=== PATIENT | female | born 1975 | race American Indian/Alaskan Native ===

== ENCOUNTER 2017-09-24 11:00 | Outpatient (CLI) | payer MEDICAID | END 2017-09-24 11:01 | disposition home or self-care (01) | LOC: SLR 11:00 | PROVIDERS: ATTEND Specialist | DX: G47.30 Sleep apnea, unspecified (principal); R40.0 Somnolence; E66.9 Obesity, unspecified; I10 Essential (primary) hypertension | CPT/HCPCS: 95810 ==

== ENCOUNTER → 2017-10-20 | Outpatient (CLI) | payer MEDICAID | LOC: SLR 11:00 | PROVIDERS: ATTEND Specialist | DX: G47.33 Obstructive sleep apnea (adult) (pediatric) (principal); E66.9 Obesity, unspecified; R40.0 Somnolence | CPT/HCPCS: 95811 ==

== ENCOUNTER → 2017-12-08 | Outpatient (CLI) | payer MEDICAID | LOC: SLR 11:00 | PROVIDERS: ATTEND Otolaryngology | DX: G47.33 Obstructive sleep apnea (adult) (pediatric) (principal) | CPT/HCPCS: 95811 ==

== ENCOUNTER 2018-03-02 06:54 | Day surgery (SDC) | payer MEDICAID ==
[2018-03-02] MEDS ORDERED: NACL 0.9% 1000 ML 1,000 ML ONE (12:23)
[2018-03-02] MEDS ORDERED: APRESOLINE ONE (12:39)
[2018-03-02] MEDS ORDERED: DIPRIVAN 10 MG/ML IV ONE (12:40)
[2018-03-02] MEDS ORDERED: HURRICAINE ONE 20% TOPICAL SPRAY MM ×2 (12:43→12:47)
[2018-03-02] MEDS ORDERED: WATER FOR IRRIG STERILE IR ONE (12:47)
--- NOTE | 2018-03-02 12:49 | Anesthesia Consultation ---
Anesthesia Consult and Med Hx Date of service: 03/02/18 - Airway Anesthetic Teeth Evaluation: Good ROM Head & Neck: Adequate Mental/Hyoid Distance: Adequate Mallampati Class: Class III Intubation Access Assessment: Possibly Difficult - Pre-Operative Health Status ASA Pre-Surgery Classification: ASA3 Proposed Anesthetic Plan: MAC - Pulmonary Hx Sleep Apnea: Yes - Cardiovascular System Hx Hypertension: Yes - Endocrine Hx Non-Insulin Dependent Diabetes: Yes - Other Systems Hx Obesity: Yes (BMI 52.9)
--- NOTE | 2018-03-02 12:49 | Anesthesia Day of Surgery ---
Anesthesia Day of Surgery - Day of Surgery Patient Examined: Yes Patient H&P Reviewed: Yes Patient is NPO: Yes
[2018-03-02] MEDS ORDERED: NACL 0.9% 1000 ML 1,000 ML IV SCH (13:00)
[2018-03-02] MEDS ORDERED: NEO SYNEPHRINE/NS Syringe(OR USE) IV ONE (13:00)
[2018-03-02] MEDS ORDERED: XYLOCAINE MPF 2% ONE (13:00)
[2018-03-02 13:34] VITALS: BP 155/90
[2018-03-02] MEDS ORDERED: HURRICAINE ONE 20% TOPICAL SPRAY MM NR (19:00)
== END 2018-03-02 06:55 | disposition home or self-care (01) ==
LOC: GIO 06:54
PROVIDERS: ATTEND Specialist
DX: K20.9 Esophagitis, unspecified (principal); K44.9 Diaphragmatic hernia without obstruction or gangrene; E66.01 Morbid (severe) obesity due to excess calories; E11.9 Type 2 diabetes mellitus without complications; I10 Essential (primary) hypertension; G47.30 Sleep apnea, unspecified; F32.9 Major depressive disorder, single episode, unspecified; Z68.43 Body mass index [BMI] 50.0-59.9, adult; Z90.710 Acquired absence of both cervix and uterus; Z98.890 Other specified postprocedural states
CPT/HCPCS: 43235; 82962; 88305; J0360; J2370; J2704; J7030

== ENCOUNTER 2018-06-23 20:23 | Emergency (ER) | payer MEDICAID ==
[2018-06-23 21:03] VITALS: BP 152/79
[2018-06-23 22:37] LABS: Bacteria,Urine 1+ /HPF (Negative); Bilirubin,Urine NEG (Negative); Blood,Urine NEG (Negative); Color,Urine Yellow (Yellow); Mucus,Urine 1+ /HPF
[2018-06-24] MEDS ORDERED: MOTRIN PO ONE (00:10)
--- NOTE | 2018-06-24 00:14 | Emergency Department Report ---
ED Headache HPI - General Chief Complaint: Headache Stated Complaint: HEADACHE/BACKPAIN Time Seen by Provider: 06/24/18 00:07 - History of Present Illness Initial Comments: Patient is a 42-year-old female who presents for headache for 2 days is 3/10 left temporal exacerbated by movement patient has not attempted over-the- counter pain medication is no dizziness or lightheadedness no nausea no vomiting secondary complaint dysuria frequency urgency no hematuria back pain patient states my concern for STI there is no vaginal discharge no vaginal bleeding last menstrual period 2 years ago Timing/Duration: other (2) Quality: moderate Head Injury Location: temporal Recent Head Trauma: occasional headaches Modifying Factors: improves with: rest Associated Symptoms: denies: confusion, fatigue, facial pain, fever/chills, flushing, loss of consciousness, nausea/vomiting, nasal congestion, nasal drainage, numbness in legs/feet, rash, seizures, sinus infection, stiff neck, vision changes, weakness Allergies/Adverse Reactions: Allergies clindamycin Allergy (Intermediate, Verified 03/04/18 15:18) Rash ITCHING latex Allergy (Intermediate, Verified 03/04/18 15:18) Unknown olmesartan [From Benicar] Allergy (Intermediate, Verified 03/04/18 15:18) Swelling lisinopril Allergy (Mild, Verified 03/04/18 15:18) Unknown COUGHING Penicillins Adverse Reaction (Verified 03/04/18 15:18) Rash ITCHING Home Medications: Ambulatory Orders Gabapentin 300 mg PO DAILY 03/01/18 Hydrochlorothiazide 25 mg PO DAILY 03/01/18 Losartan 10 mg PO DAILY 03/01/18 Zoloft 50 mg PO DAILY 03/01/18 amLODIPine 10 mg PO DAILY 03/01/18 metFORMIN 1,000 mg PO BID 03/01/18 Insulin Detemir [Levemir Flextouch] 50 units SQ QDAY 03/09/18 Insulin Lispro [Humalog 100 UNITS/ML Kwikpen] 15 units SQ BID 03/09/18 Insulin Lispro [Humalog 100 UNITS/ML Kwikpen] 20 units SQ QDAY 03/09/18 Ibuprofen 800 mg PO TID PRN #30 tablet 06/24/18 Nitrofurantoin Petroleum/M-Cryst [Macrobid CAP] 100 mg PO BID #14 capsule 06/24/18 ED Review of Systems ROS: Stated complaint: HEADACHE/BACKPAIN Other details as noted in HPI Constitutional: denies: chills, fever Eyes: denies: eye pain, eye discharge, vision change ENT: denies: ear pain, throat pain Respiratory: denies: cough, shortness of breath, wheezing Cardiovascular: denies: chest pain, palpitations Endocrine: no symptoms reported Gastrointestinal: as per HPI Genitourinary: urgency, dysuria, frequency. denies: hematuria, discharge, abnormal menses, dyspareunia Musculoskeletal: denies: back pain, joint swelling, arthralgia Skin: denies: rash, lesions Neurological: denies: headache, weakness, paresthesias Psychiatric: denies: anxiety, depression Hematological/Lymphatic: denies: easy bleeding, easy bruising ED Past Medical Hx - Past Medical History Previous Medical History?: Yes Hx Hypertension: Yes (10 years ago) Hx Diabetes: Yes (OVER 10 YEARS) Hx Arthritis: Yes Hx HIV: No - Surgical History Past Surgical History?: Yes Additional Surgical History: c sec X3 hernia repair, gastric bypass, hysterectomy - Social History Smoking Status: Never Smoker Substance Use Type: None, Alcohol - Medications Home Medications: Home Medications Medication Instructions Recorded Confirmed Last Taken Type Gabapentin 300 mg PO DAILY 03/01/18 03/09/18 02/19/18 History Hydrochlorothiazide 25 mg PO DAILY 03/01/18 03/04/18 03/08/18 08:00 History Losartan 10 mg PO DAILY 03/01/18 03/04/18 Unknown History Zoloft 50 mg PO DAILY 03/01/18 03/04/18 03/08/18 08:00 History amLODIPine 10 mg PO DAILY 03/01/18 03/04/18 03/09/18 03:45 History metFORMIN 1,000 mg PO BID 03/01/18 03/04/18 03/08/18 08:00 History Insulin Detemir [Levemir Flextouch] 50 units SQ QDAY 03/09/18 03/09/18 03/08/18 08:00 History 50 UNITS Insulin Lispro [Humalog 100 15 units SQ BID 03/09/18 03/09/18 03/08/18 08:00 History UNITS/ML Kwikpen] Insulin Lispro [Humalog 100 20 units SQ QDAY 03/09/18 03/09/18 03/07/18 History UNITS/ML Kwikpen] Ibuprofen 800 mg PO TID PRN #30 tablet 06/24/18 Unknown Rx Nitrofurantoin Petroleum/M-Cryst 100 mg PO BID #14 capsule 06/24/18 Unknown Rx [Macrobid CAP] ED Physical Exam - General Limitations: No Limitations General appearance: alert, in no apparent distress - Head Head exam: Present: atraumatic, normocephalic - Eye Eye exam: Present: normal appearance - ENT ENT exam: Present: normal exam - Neck Neck exam: Present: normal inspection - Respiratory Respiratory exam: Present: normal lung sounds bilaterally. Absent: respiratory distress - Cardiovascular Cardiovascular Exam: Present: regular rate, normal rhythm. Absent: systolic murmur, diastolic murmur, rubs, gallop - GI/Abdominal GI/Abdominal exam: Present: soft, normal bowel sounds. Absent: distended, rebound, bruit, hernia - Rectal Rectal exam: Present: deferred - Extremities Exam Extremities exam: Present: normal inspection - Back Exam Back exam: Present: normal inspection, full ROM. Absent: tenderness, CVA tenderness (R), CVA tenderness (L), muscle spasm, paraspinal tenderness, vertebral tenderness, rash noted - Neurological Exam Neurological exam: Present: alert, oriented X3, CN II-XII intact, normal gait, reflexes normal. Absent: motor sensory deficit - Psychiatric Psychiatric exam: Present: normal affect, normal mood - Skin Skin exam: Present: warm, dry, intact, normal color. Absent: rash ED Course Vital Signs 06/23/18 20:57 Temperature 98.6 F Pulse Rate 64 Respiratory 20 Rate Blood Pressure 152/79 O2 Sat by Pulse 100 Oximetry ED Medical Decision Making - Lab Data Laboratory Tests 06/23/18 22:18 Urine Color Yellow Urine Turbidity Slightly-cloudy Urine pH 5.0 Ur Specific Golden 1.031 H Urine Protein 100 mg/dl Urine Glucose (UA) Neg Urine Ketones Neg Urine Blood Neg Urine Nitrite Neg Urine Bilirubin Neg Urine Urobilinogen 2.0 Ur Leukocyte Esterase Tr Urine WBC (Auto) 11.0 H Urine RBC (Auto) 3.0 U Epithel Cells (Auto) 9.0 Urine Bacteria (Auto) 1+ Urine Mucus 1+ - Medical Decision Making this is a uti with secondary headache, uA: wbc, luek, plan to Macrobid by mouth twice a day ibuprofen when necessary headache patient will follow with PCP in 2- 3 days as well as understanding and agreement was signed will be DC'd home in stable condition at this time Critical care attestation.: If time is entered above; I have spent that time in minutes in the direct care of this critically ill patient, excluding procedure time. ED Disposition Clinical Impression: UTI (urinary tract infection) Qualifiers: Urinary tract infection type: acute cystitis Hematuria presence: without hematuria Qualified Code(s): N30.00 - Acute cystitis without hematuria Headache Qualifiers: Headache type: unspecified Headache chronicity pattern: acute headache Intractability: not intractable Qualified Code(s): R51 - Headache Disposition: DC-01 TO HOME OR SELFCARE Is pt being admited?: No Does the pt Need Aspirin: No Condition: Good Instructions: Urinary Tract Infection in Women (ED), Acute Headache (ED) Prescriptions: Ibuprofen 800 mg PO TID PRN #30 tablet PRN Reason: pain Nitrofurantoin Petroleum/M-Cryst [Macrobid CAP] 100 mg PO BID #14 capsule [facility] - [facility]5 Days Forms: Work/School Release Form(ED) Time of Disposition: 00:18
== END 2018-06-24 00:16 | disposition home or self-care (01) ==
LOC: ED 20:23
DX: N30.00 Acute cystitis without hematuria (principal); R51 Headache; I10 Essential (primary) hypertension; E11.9 Type 2 diabetes mellitus without complications; M19.90 Unspecified osteoarthritis, unspecified site; Z88.1 Allergy status to other antibiotic agents; Z88.8 Allergy status to other drugs, medicaments and biological substances; Z88.0 Allergy status to penicillin; Z91.040 Latex allergy status
CPT/HCPCS: 81001